=== PATIENT | female | born 1995 | race Caucasian/White ===

== ENCOUNTER 2024-02-25 14:30 | Emergency (ER) | payer OTHER, SELFPAY ==
[2024-02-25 14:41] VITALS: BP 126/70; PULSE 86; RESP 20; TEMP 37.3; O2SAT 100
--- NOTE | 2024-02-25 15:04 | ED.GENADULT ---
HPI - General Adult General Chief complaint: Dizziness Stated complaint: High Glucose,Light-headed,Shaky Time Seen by Provider: 02/25/24 14:55 Mode of arrival: ambulatory Limitations: no limitations History of Present Illness HPI narrative: 28-year-old female presents with concern for an elevated blood glucose reading. She reports intermittent feeling of lightheadedness, shakiness, hot flashes for about 2 weeks. Reports she was feeling that way earlier today which she was at work. 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 The CMP was normal except for a potassium level of 3.4 and a nonfasting blood glucose of 159. Patient reports about 2 hours before the blood draw she ate sloppy [place], biscuits and gravy, drink a Sprite. She denies current symptoms. She denies chest pain, shortness of breath. She denies nausea, vomiting. She reports over the last 2 weeks when she has had the symptom she has ate something and felt better. MD complaint: Lightheaded Related Data Home Medications Medication Instructions Recorded Confirmed No Home Medications 02/25/24 02/25/24 Allergies Allergy/AdvReac Type Severity Reaction Status Date / Time No Known Allergies Allergy Verified 02/25/24 14:33 Review of Systems Review of Systems: CONSTITUTIONAL: Denies malaise, chills, sweats, or fever. EYES: Denies visual changes, redness, or discharge. CARDIOVASCULAR: Denies chest pain, palpitations, or edema. RESPIRATORY: Denies cough or dyspnea. GASTROINTESTINAL: Denies abdominal pain, nausea, vomiting, diarrhea SKIN: Denies rash or itching. MUSCULOSKELETAL: Denies myalgia. NEUROLOGIC: Denies numbness, weakness, or headache. Reports history of lightheadedness PSYCHIATRIC: Denies anxiety or depression. All systems reviewed & are unremarkable except as noted in HPI and below PMFSH Comments At time of signature, agree with nursing past medical, surgical, social and family history. There is no relevant family history pertinent to the presenting complaint Exam Narrative: GENERAL: Well-appearing, well-nourished, and in no acute distress. HEAD: Normocephalic, atraumatic. EYES: PERRLA, sclera clear, and EOMI. No nystagmus. ENT: Nares clear, turbinates pink, no rhinorrhea or epistaxis. Mucous membranes moist. TM pearly gama with sharp light reflex bilaterally; no tragal tenderness. Oropharynx without erythema or lesions. Tonsils not enlarged and without exudate. NECK: Supple. No lymphadenopathy. No jugular venous distension. Carotids were easily palpable bilaterally. CHEST: No respiratory distress. Clear to auscultation. No bony deformities, no asymmetry. Speaks in full sentences. HEART: Regular rate and rhythm. No murmur heard. Normal peripheral pulses. SKIN: Warm, dry, no visible rash. NEURO: Alert and oriented x3. No focal deficits. Cranial nerves II through XII grossly intact PSYCH: Normal mood and affect Course Course Emergency Course: Discussed post prandial glucose levels, pre-diabetes, carb and sugar intake. Patient has an appointment with PCP at the beginning of February. I advised her to follow-up with PCP and to go to the ER if her symptoms worsen or change Patient is aware of, understands and agrees to treatment plan. Anticipatory guidance given. Patient agrees to follow-up as directed and is aware of reasons to seek care at the emergency department. Portions of this record may have been created with voice recognition software Level of Care: Express Care Visit Vital Signs Vital signs: Vital Signs Temperature 99.2 F 02/25/24 14:41 Pulse Rate 86 02/25/24 14:41 Respiratory Rate 20 02/25/24 14:41 Blood Pressure 126/70 02/25/24 14:41 Pulse Oximetry 100 02/25/24 14:41 Oxygen Delivery Room Air 02/25/24 14:41 Temperature 99.2 F 02/25/24 14:41 Pulse Rate 86 02/25/24 14:41 Respiratory Rate 20 02/25/24 14:41 Blood Pressure 126/70 02/25/24 14:41 Pulse Oximetry 100 02/25/24 14:41 Oxy
== END 2024-02-25 15:10 | disposition home or self-care (01) ==
PROVIDERS: Emergency Provider Nurse Practitioner
DX: R42 Dizziness and giddiness (principal)
CPT/HCPCS: 99213; G0463

== ENCOUNTER 2024-05-18 08:36 | Emergency (ER) | payer OTHER, SELFPAY ==
--- NOTE | ~2024-05-18 | CT_ITS ---
EXAMINATION: CT chest abdomen pelvis wo con DATE: 05/18/2024 10:43 INDICATION: Right rib pain. Fall. Right upper quadrant abdominal pain. Shortness of breath. TECHNIQUE: Computed tomography (CT) of the chest, abdomen, and pelvis was performed without intraveno us contrast. Automated exposure control and iterative reconstruction technique were employed. The dos e-length product was 292.30 mGy-cm. COMPARISON: Chest single view 11/13/2021 FINDINGS: CHEST CT: There is a small pneumatocele in right lung middle lobe. No pleural effusion. The heart size is nany l. No pericardial effusion. The bones are unremarkable. ABDOMEN/PELVIS CT: The liver, gallbladder, spleen, pancreas, adrenal glands, and kidneys are normal. There is physiologi c fluid in the pelvis. There are dilated loops of bowel. There are no pathologically enlarged lymph n odes. The bones are unremarkable. IMPRESSION: 1. No etiology for the patient's symptoms. Reviewed, dictated and finalized at location A.
[2024-05-18 08:41] VITALS: BP 119/76; PULSE 96; RESP 18; TEMP 36.7; O2SAT 100
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
[2024-05-18] MEDS: KETOROLAC (*BKC) 60 MG/2 ML VIAL IM (10:13)
[2024-05-18] MEDS: LIDOCAINE 5% PATCH 1 PATCH TRANSDERM (10:13)
[2024-05-18 10:37] LABS: BEDSIDEPREGUCG Negative
[2024-05-18 12:09] VITALS: BP 111/78; PULSE 78; RESP 18; O2SAT 100
== END 2024-05-18 12:15 | disposition home or self-care (01) ==
PROVIDERS: Emergency Provider Physician Assistant
DX: S20.211A Contusion of right front wall of thorax, initial encounter (principal); X58.XXXA Exposure to other specified factors, initial encounter
CPT/HCPCS: 71250; 74176; 81025; 96372; 99284; A9270; J1885

== ENCOUNTER 2024-12-20 15:19 | Emergency (ER) | payer SELFPAY ==
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
--- OUTSIDE RECORDS SUMMARY | 2024-12-20 15:21 | XMS_ITS | Clinical Summary ---
Author Organization [facility] Address [facility] [place] [address] Care Team Providers Care Mill Stenciler Name Role Phone Arianna De La Cruz DO Primary Care Provider Allergies No known active allergies Medications No known medications Active Problems Problem Noted Date Diagnosed Date Possible exposure to STD 06/15/2020 Weight loss 06/15/2020 Resolved Problems Problem Noted Date Diagnosed Date Resolved Date Pap smear for cervical cancer screening 01/13/2019 06/20/2020 Encounter for preventive health examination 01/21/2013 06/20/2020 Immunizations Name Administration Dates Next Due Dtap (Generic) 04/22/2003,01/21/2001,07/05/1998 Dtp (Generic) 04/05/1998,02/03/1998 HPV 08/15/2015,06/15/2015 Hepatitis A (Generic) 05/09/2012,04/14/2009 Hepatitis B (Generic: Adult) 12/08/1998,02/03/19 98,1997 Hib Vaccine, Prp-Omp 04/05/1998,02/03/1998 MMR (Generic) 04/22/2003,01/21/2001 Meningococcal Vac A,C,Y,W-135 Sc 06/15/2015 Opv 04/22/2003,01/21/2001,04/05/1998 ,02/03/1998 Tdap (Generic) 05/09/2012 Varicella Vaccine 04/15/2009,01/20/2001 Family History Medical History Relation Comments Hypertension Father Colon Cancer Maternal Grandfather Hypertension Maternal Grandfather Colon Cancer Maternal Grandmother Hypertension Maternal Grandmother Relation Status Comments Father Maternal Grandfather Maternal Grandmother Social History Tobacco Use Types Packs/Day Years Used Date Smoking Tobacco: Never Smokeless Tobacco: Never Alcohol Use Standard Drinks/Week Comments Yes 0 (1 standard drink = 0.6 oz pur e alcohol) AUDIT-C Answer Date Recorded Q1: How often do you have a drink containing alc ohol? 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 Not on file Not on file Last Filed Vital Signs Vital Sign Reading Time Taken Comments Blood Pressure 118/72 06/15/2020 8:28 AM CDT Pulse 78 06/15/2020 8:28 AM CDT Temperature - - Respiratory Rate - - Oxygen Saturation - - Inhaled Oxygen Concentration - - Weight 49.9 kg (110 lb) 06/15/2020 8:28 AM CDT Height 157.5 cm (5' 2 ) 06/15/2020 8:28 AM CDT Body Mass Index 20.12 06/15/2020 8:28 AM CDT Plan of Treatment Health Maintenance Due Date Last Done Comments Hepatitis C 12/07/2015 HPV Vaccines (3 - 3-dose series) 12/14/2015 08/15/2015, 06/15/2015 Annual Physical 06/15/2021 06/15/2020 DTaP, Tdap and Td Vaccines (7 - Td or Tdap) 05/09/2022 05/09/2012, 04/22/2003, 01/21/2001, Additional history exists Cervical Cancer Screening Pap Smear (Age 21 to 29) Every 3 Years 06/15/2023 06/15/2020, 01/13/2019 Cervical Cancer Screening 06/15/2023 COVID-19 Vaccine (2023- season) 2024 Influenza Adult (#1) 2024 PHQ-2 (Physician [place]) 09/30/2024 Hepatitis B Vaccines Completed 12/08/1998, 02/03/1998, 1997 Meningococcal Vaccine Aged Out 06/15/2015 No carline matheus eligible based on patient's age to complete this topic Chlamydia Screening Females ages 16-24 Discontinued 01/13/2019, 10/22/2017, 07/25/2016, Additional history exists Meningococcal B Vaccine Aged Out No l onger eligible based on patient's age to complete this topic Pneumococcal Vaccine: Pediatrics (0 to 5 Years) and At-Risk Patients (6 to 64 Years) Aged Out No longer eligible based on patient's age to complete this topic RSV Immunizations Under 20 Months Aged Out No longer eligible based on patient's age to complete this topic Procedures Procedure Name Priority Date/Time Associated Diagnosis Comments THINPREP IMAGING SYSTEM PAP Routine 06/15/2020 9:10 AM CDT Cervical Cancer Screening C.TRACHOMATIS RNA TMA Routine 01/13/2019 4:20 PM CDT from Last 3 Months or Most Recently Relevant to Health Maintenance Results * THINPREP IMAGING SYSTEM PAP (06/15/2020 9:10 AM CDT) CLINICAL INFORMATION: Information not provided [place], [place] Clinical Information: INFORMATION NOT PROVIDED [place], [place] Date of Last Pap INFORMATION NOT PROVIDED [place], [place] Previous Biopsy? INFORMATION NOT PROVIDED [place]EW[place], [place] SOURCE (QST) Information not provided STEWARD, [place] STATEMENT OF ADEQUACY: ST[place], [place] Comment: Satisfactory for evaluation. Endocervical/transformation zone component present. Age and/or menstrual status not provided PAP INTERPRETATION/RESU LTS Negative for intraepithelial lesion or malignancy. [place], [place] COMMENT: This Pap test has been evaluated with computer assisted technology. [place], [place] WEAP[employer] SYSTEM INSTRUMENT MECHANIC [place], [place] Comment: BES, CT(ASCP) CT screening location: [place] [address] [place] [address] COMMENT: [place], [place] Comment: EXPLANATORY NOTE: The Pap is a screening test for cervical cancer. It is not a diagnostic test and is subject to false negative and false positive results. It is most reliable when a satisfactory sample, regularly obtained, is submitted with relevant clinical findings and history, and when the Pap result is evaluated along with historic and current clinical information. 06/15/2020 9:10 AM CDT 06/16/2020 3:27 AM CDT Narrative Resulting Agency Comment Performing Organization Information: Site ID: Name: [facility] Address: [address] [place] [address] Director: Daljit Hamilton Arianna De La Cruz DO PATHOLOGY/CYTOLOGY ORDERABLE S Final Result Performing Organization Address City/[facility]/ZIP Co de Phone Number [facility] [email or web address] [phone], * C.TRACHOMATIS RNA TMA (01/13/2019 4:20 PM CDT) CHLAMYDIA TRACHOMATIS RNA TMA Negative Negative [facility] CONVERSION Comment:Result Comment: Nega tive: Absence of C. trachomatis (by SELENE) 01/13/2019 4:20 PM CDT 01/13/2019 4:20 PM CDT Narrative [facility] CONVERSION - 01/14/2019 2:23 PM CDT Order Comment: Report: [id number] Result Communication: No patient communication needed at this time Arianna De La Cruz DO MICROBIOLOGY - GENERAL ORDER [place] Final Result Performing Organization Address City/[facility]/ZIP Co de Phone Number [facility] CONVERSION from Last 3 Months or Most Recently Relevant to Health Maintenance Care Teams Mill Stenciler Relationship Specialty Start Date End Date Arianna De La Cruz DO [address] [place] [address] PCP - General FAMILY PRACTICE 04/18/20
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
[2024-12-20 15:29] VITALS: BP 122/72; PULSE 98; RESP 17; TEMP 37.1; O2SAT 99
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
--- OUTSIDE RECORDS SUMMARY | 2024-12-20 17:53 | XMS_ITS | Clinical Summary ---
Author Organization [facility] Address [address] [place] [address] Care Team Providers Care Principal Solutions Architect Name Role Phone Arianna De La Cruz Primary Care Provider Source Comments [facility],non-owned Affiliates and Associated Physician Practices is amultiple site organization consisting of ambulatory clinics and hospital sitesin [place], [place], [place] and [place]. This disclosure is being madepursuant to the Care Everywhere program and may not contain all information available regarding this patient. Last updated 18.[facility] Allergies No known active allergies Medications * [...] HEPATITIS C ANTIBODY Routine 09/12/2020 1:21 PM COMMERCIAL LOAN ANALYST Supervision of normal first , antepartum from Last 3 Months or Most Recently Relevant to Health Maintenance Results * HIV-1 HIV-2 ANTIBODY + HIV P24 AG PANEL (12/27/2020 9:41 AM CDT) HIV1/2 Ab + P24 Ag Non Reactive Non Reactive 12/27/2020 11:24 AM CDT [facility] Blood BLOOD SPECIMEN / Unknown Venipuncture / Unknown 12/27/2020 9:41 AM CDT 12/27/2020 10:41 AM CDT Narrative [facility] - 12/27/2020 11:24 AM CDT No Laboratory evidence of HIV infection. Shana Campoverde MD LAB - CHEMISTRY [facility] [address] [place], [place] [id number] * HEPATITIS C ANTIBODY (09/12/2020 1:21 PM COMMERCIAL LOAN ANALYST) [facility] HCV Antibody Screen Non Reactive Non Reactive 09/12/2020 2:47 PM COMMERCIAL LOAN ANALYST [facility] Blood BLOOD SPECIMEN / Unknown Venipuncture / Unknown 09/12/2020 1:21 PM COMMERCIAL LOAN ANALYST 09/12/2020 1:47 PM COMMERCIAL LOAN ANALYST Narrative [facility] - 09/12/2020 2:47 PM COMMERCIAL LOAN ANALYST Non Reactive - Antibodies to Hepatitis C virus (HCV) were not detected, result does not exclude early acute HCV infection. Sung Rachel MD LAB - CHEMISTRY [facility]AGNER Performing Organization Address City/[facility]/ZIP Co de Phone Number [facility] [address] [place], [place] [phone] from Last 3 Months or Most Recently Relevant to Health Maintenance Advance Directives * Full Code (Latest Code Status on File) Date Activated Date Inactivated Comments 04/03/2021 8:41 AM 04/06/2021 2:32 PM * Full Code Date Activated Date Inactivated Comments 12/23/2020 12:07 AM 12/23/2020 5:34 AM Care Teams Principal Solutions Architect Relationship Specialty Start Date End Date Arianna De La Cruz DO [address] [place] [address] PCP - General Family Medicine 05/09/21
--- OUTSIDE RECORDS SUMMARY | 2024-12-20 17:53 | XMS_ITS | Clinical Summary ---
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 INFORMATION NOT PROVIDED [place] SOURCE (QST) Information not provided [place] STATEMENT OF ADEQUACY: [place] Comment: Satisfactory for evaluation. Endocervical/transformation zone component present. Age and/or menstrual status not provided PAP INTERPRETATION/RESU LTS Negative for intraepithelial lesion or malignancy. [place] COMMENT: This Pap test has been evaluated with computer assisted technology. [place] ORDER ENTRY REPRESENTATIVE [place] Comment: BES, CT(ASCP) CT screening location: [place] [address] [address] [place] [address] COMMENT: [place] Comment: EXPLANATORY NOTE: The Pap is [...] Comment Performing Organization Information: Site ID: Name: [facility] Address: [address] [place] [address] Director: Daljit Hamilton Arianna De La Cruz DO PATHOLOGY/CYTOLOGY ORDERABLE S Final Result Performing Organization Address City/[facility]/ZIP Co de Phone Number [employer] DIAGNOSTICS - KEE ORDERS [employer] [phone], * C.TRACHOMATIS RNA TMA (01/13/2019 4:20 PM CDT) CHLAMYDIA TRACHOMATIS RNA TMA Negative Negative [facility] EP[facility] CONVERSION Comment:Result Comment: Nega tive: Absence of C. trachomatis (by SELENE) 01/13/2019 4:20 PM CDT 01/13/2019 4:20 PM CDT Narrative [facility] EP[facility] CONVERSION - 01/14/2019 2:23 PM CDT Order Comment: Report: [id number] Result Communication: No patient communication needed at this time Arianna De La Cruz DO MICROBIOLOGY - GENERAL ORDER [place] Final Result Performing Organization Address City/[facility]/ZIP Co de Phone Number [facility] [employer] EP[employer] CONVERSION from Last 3 Months or Most Recently Relevant to Health Maintenance Care Teams Waiter/Waitress Tourist Class Relationship Specialty Start Date End Date Arianna De La Cruz DO [address] [place] [address] PCP - General FAMILY PRACTICE 04/18/20
[2024-12-20] MEDS: TETRACAINE HCL 0.5% OPHTH SOLN 4 ML BTL 1 DROP (19:37)
[2024-12-20] MEDS: ERYTHROMYCIN OPHTH OINTMENT 1 GM TUBE 1 APPLIC RIGHT EYE (19:37)
[2024-12-20] MEDS: FLUORESCEIN SOD 1 MG/STRIP (19:37)
[2024-12-20 19:45] VITALS: BP 117/76; PULSE 68; RESP 16; TEMP 36.6; O2SAT 98
== END 2024-12-20 19:59 | disposition home or self-care (01) ==
PROVIDERS: Emergency Provider Emergency Medicine
DX: S05.01XA Injury of conjunctiva and corneal abrasion without foreign body, right eye, initial encounter (principal); W51.XXXA Accidental striking against or bumped into by another person, initial encounter
CPT/HCPCS: 70480; 99283; A9270